=== PATIENT | male | born 1975 | race African-American/Black ===

== ENCOUNTER 2018-10-13 20:50 | Emergency (ER) | payer MEDICAID ==
[~2018-10-13] VITALS: Ht 172.7 cm; Wt 77.0 kg
[2018-10-14 06:31] VITALS: BP 106/66
== END 2018-10-14 06:59 | disposition home or self-care (01) ==
LOC: ER 21:03
DX: F10.229 Alcohol dependence with intoxication, unspecified (principal); Y90.9 Presence of alcohol in blood, level not specified
CPT/HCPCS: 99283